=== PATIENT | male | born 1950 | race Caucasian/White ===

== ENCOUNTER 2021-08-24 15:47 | Emergency (ER) | payer MEDICARE ==
[~2021-08-24] VITALS: Ht 180.3 cm; Wt 107.7 kg
[~2021-08-24 15:47] MED LIST: CIPRODEX1 ML AD; FLONASE NASAL50 MCG; PERCOCET 5/325M1 TAB PO; WELLBUTRIN SR150 M1 PO; ZPAK PO
[2021-08-24] MEDS ORDERED: GABAPENTIN100 MG PO (16:48)
[2021-08-24] MEDS ORDERED: LISINOPRIL5 MG PO (16:48)
[2021-08-24 17:09] VITALS: BP 172/73
== END 2021-08-24 17:00 | disposition left against medical advice (07) ==
LOC: ED 15:47 → LWOBS 17:00
DX: Z53.21 Procedure and treatment not carried out due to patient leaving prior to being seen by health care provider (principal)